=== PATIENT | female | born 1970 | race Caucasian/White ===

== ENCOUNTER → 2017-09-24 10:12 | Outpatient (CLI) | payer SELFPAY | PROVIDERS: Visit Provider Obstetrics & Gynecology | DX: R19.09 Other intra-abdominal and pelvic swelling, mass and lump (principal) | CPT/HCPCS: 36415; 82306; 82533; 82627; 82670; 83001; 84146; 84270; 84403; 84443; 82626 ==

== ENCOUNTER → 2017-09-25 09:07 | Outpatient (CLI) | payer SELFPAY ==
[2017-09-25 11:31] LABS: T3 Total - Triiodothyronine 1.05 ng/mL (0.6-1.81)
[2017-09-25 11:32] LABS: Estradiol < 11.0 pg/mL; Follicle Stimulating Hormone 20.6 mIU/mL; T4 Free Direct 0.98 ng/dL (0.76-1.46)
[2017-09-26 04:15] LABS: DHEA Sulfate 125.7 ug/dL (41.2-243.7)
[2017-09-27 08:52] LABS: Sex Hormone-binding Globulin 64.5 nmol/L (24.6-122.0)
[2017-09-30 11:54] LABS: 17-Hydroxyprogesterone 19 ng/dL (.)
== END ==
PROVIDERS: Visit Provider Obstetrics & Gynecology
DX: R19.09 Other intra-abdominal and pelvic swelling, mass and lump (principal)
CPT/HCPCS: 36415; 82533; 82627; 82670; 83001; 83498; 84146; 84270; 84403; 84439; 84443; 84480; 82626

== ENCOUNTER → 2017-10-12 09:09 | Outpatient (CLI) | payer SELFPAY ==
[2017-10-12 11:49] LABS: Progesterone Level 6.52 ng/mL (See Comment)
== END ==
PROVIDERS: Visit Provider Obstetrics & Gynecology
DX: Z78.0 Asymptomatic menopausal state (principal)
CPT/HCPCS: 36415; 82533; 82670; 84144

== ENCOUNTER → 2017-11-30 13:40 | Outpatient (CLI) | payer SELFPAY ==
--- NOTE | 2017-11-30 14:00 | US_ITS ---
STUDY: ULTRASOUND TRANSVAGINAL CLINICAL: Female, 47 years old. Chronic pelvic pain TECHNIQUE: Transvaginal COMPARISON: None. FINDINGS: Normal uterine size measuring 11.3 cm in maximal craniocaudal dimension. There is a 4 x 4.3 x 3.8 cm fibroid. Normal endometrial thickness measuring 7 mm. There are no endometrial masses, and there is no fluid in the endometrial cavity. Normal uterine cervix. Normal right ovary, measuring 5.9 x 3.4 x 3.5 cm. There are multiple follicles with a simple 2.3 x 2.5 x 2.3 cm cyst. Normal left ovary, measuring 2.8 x 2.7 x 1.5 cm. There are multiple follicles without a dominant cyst. There is no free fluid in the pelvis. Sonographically normal bladder There is a right inguinal lymph node measuring 3.1 x 2.9 x 1.5 cm. US/Pelvic (Non ) IMPRESSION: 4.3 cm anterior uterine fibroid. Simple right ovarian cyst Enlarged right inguinal lymph node, follow-up recommended to assure resolution or stability. Electronically Signed: Adán Canales MD at 15:18 EDT , Service support ,
--- NOTE | 2017-11-30 14:23 | US_ITS ---
STUDY: ULTRASOUND TRANSVAGINAL CLINICAL: Female, 47 years old. Chronic pelvic pain TECHNIQUE: Transvaginal COMPARISON: None. FINDINGS: Normal uterine size measuring 11.3 cm in maximal craniocaudal dimension. There is a 4 x 4.3 x 3.8 cm fibroid. Normal endometrial thickness measuring 7 mm. There are no endometrial masses, and there is no fluid in the endometrial cavity. Normal uterine cervix. Normal right ovary, measuring 5.9 x 3.4 x 3.5 cm. There are multiple follicles with a simple 2.3 x 2.5 x 2.3 cm cyst. Normal left ovary, measuring 2.8 x 2.7 x 1.5 cm. There are multiple follicles without a dominant cyst. There is no free fluid in the pelvis. Sonographically normal bladder There is a right inguinal lymph node measuring 3.1 x 2.9 x 1.5 cm. US/Transvaginal Non- IMPRESSION: 4.3 cm anterior uterine fibroid. Simple right ovarian cyst Enlarged right inguinal lymph node, follow-up recommended to assure resolution or stability. Electronically Signed: Adán Canales MD at 15:18 EDT , Service support ,
== END ==
PROVIDERS: Family Provider Family Medicine; PCP Family Medicine; Visit Provider Obstetrics & Gynecology
DX: R10.2 Pelvic and perineal pain (principal); G89.29 Other chronic pain
CPT/HCPCS: 76830; 76856; 93976

== ENCOUNTER → 2018-03-09 14:57 | Outpatient (CLI) | payer SELFPAY ==
--- NOTE | 2018-03-09 | FLU_PTH ---
PATIENT: JODY LANDRUM LOC: [facility] U#:[id number] AGE/SX: 55/F ROOM: RE03/09/[address]: Dr. Kiah Shook MD : 1970 BED: DIS: SPEC #: [id number] RECD: 03/09/18 14:04 STATUS: MIKAEL GARRETTKae #: [id number] ELIAS: 03/09/18 00:[address]: Kiah Cook DEPT: CYTOLOGY RECD BY: Maury Adams ENTERED: 03/10/18 12:56 SP TYPE: Fluid OTHR DR: Dr. Sandra Ordonez MD Tissues: Inguinal region, NOS Procedures: Pap Stain (control) Special Stain Group II Surgery Specimen Level IV Cell Block Cytospin Fluid HEADER OPERATION: Ultrasound-guided right inguinal mass aspiration PRE-OP DIAGNOSIS: Cyclical swelling increases at ovulation D21.21 TISSUE SUBMITTED: Aspiration of right inguinal mass DIAGNOSIS CYTOLOGY Ultrasound-guided fine needle aspiration of right inguinal mass (cytospin and cell block): Negative for malignant cells. AM:erica 03/11/18 COMMENT Immunohistochemistry ([id number]) supports the above diagnosis. Case has been reviewed in consultation with Dr. Martinez who concurs with the above diagnosis. IDC:SJ CYTOLOGY STUDY Slides are reviewed. CYTOLOGY GROSS Received is 6 ml of cloudy rodriguez fluid labeled with the patient's name and and designated per the requisition as aspiration of right inguinal mass. Submitted for cytology preparation including cell block. 03/10/18 TC: 5 CPT: 10115, 51925
--- NOTE | 2018-03-09 | IMM_PTH ---
PATIENT: JODY LANDRUM LOC: [facility] U#:[id number] AGE/SX: 55/F ROOM: RE03/09/[address]: Dr. Kiah Shook MD : 1970 BED: DIS: SPEC #: [id number] RECD: 03/12/18 09:49 STATUS: MIKAEL REQ #: [id number] ELIAS: 03/09/18 00:[address]: Kiah Cook DEPT: IMMUNOHISTOCHEMISTRY RECD BY: Jaylin Napier ENTERED: 03/12/18 09:51 SP TYPE: IMMUNO OTHR DR: Dr. Sandra Ordonez MD Tissues: Inguinal region, NOS Procedures: MACRO (initial) CD10 (add) CD20 (add) CD3 (add) CD45 (add) CD5 (add) CD79A (add) DAY-2 (add) ER (add) P53 (add) NC (add) Vimentin (add) Pankeratin (add) PHYSICIAN & INSTITUTION [place] [id number] SPECIMEN INFORMATION: Tissue Source: Right inguinal mass Clinical Info: Right inguinal mass Specimen Number: [id number] CPT code: 94402, 11433 x12 METHODOLOGY: Deparaffinized sections of prefer/formalin-fixed tissue or PAP/DQ stained slides are incubated with monoclonal/polyclonal antibodies/oligonucleotide probes. Localization is made via biotin free immunoperoxidase method. Appropriate controls are performed and reacted as expected. Results on target cell population are indicated in the following table: RESULTS: ANTIBODY / CLONE RESULT Macro (HAM-56) positive AE1-3 (AE1/AE3/PCK26) negative P53 (DO-7) positive, focal Vimentin (V9) positive CD3 (PS1) positive, rare CD5 (SP10) positive, rare CD45 (RP2/18) positive CD79a (11E3) negative CD20 (L26) negative ER (6F11) negative, 0% NC (1E2) negative, 0% DAY-2 (SP21) negative CD10 (56C6) negative These tests were developed and their performance characteristics determined by [facility]. They may not have been cleared or approved by the U.[place]. Food and Drug Administration. The FDA has determined that such clearance or approval is not necessary. INTERPRETATION: Right inguinal mass aspiration, ultrasound-guided fine needle aspiration (cell block): Negative for malignant cells. AM:erica 03/17/18 Case has been reviewed in consultation with Dr. Martinez who concurs with the above diagnosis. IDC:SJ ADDENDUM ADDENDUM ADDENDUM 03/25/2018 10:22 ADDENDUM 03/25/2018 10:22 ADDENDUM 03/25/2018 10:22 ADDENDUM 03/25/2018 10:22 ADDENDUM 03/25/2018 10:22 Additional special stains were performed per Dr. Bullard?s request (ER, NC, CD10 and COX2).
== END ==
PROVIDERS: Family Provider Family Medicine; PCP Family Medicine; Visit Provider Obstetrics & Gynecology
DX: R19.09 Other intra-abdominal and pelvic swelling, mass and lump (principal)
CPT/HCPCS: 88108; 88305; 88313; 88341; 88342